=== PATIENT | female | born 1955 | race Caucasian/White ===

== ENCOUNTER → 2022-10-11 | Outpatient (CLI) | payer MEDICARE ==
[~2022-10-11] VITALS: Ht 172.7 cm; Wt 102.0 kg
[~2022-10-11] MED LIST: TRAM50TA3 PO
== END | disposition home or self-care (01) ==
LOC: PREOP 05:36
PROVIDERS: ATTEND Surgery
DX: Z01.818 Encounter for other preprocedural examination (principal)

== ENCOUNTER 2022-10-18 10:47 | Day surgery (SDC) | payer MEDICARE, OTHER ==
[~2022-10-18] VITALS: Ht 172.7 cm; Wt 102.0 kg
[2022-10-18] VITALS (11 sets, daily range): BP systolic 137–163; BP diastolic 61–71
--- NOTE | 2022-10-18 11:14 | Progress Note-Pre Operative ---
Pre-Operative Progress Note Date of Available H&P: Sep 26, 2022 Date H&P Reviewed: Oct 18, 2022 Time H&P Reviewed: 11:10 History & Physical: H&P Reviewed, Patient Examed, No changes noted Pre-Operative Diagnosis: Incarcerated umbilical hernia ELISSA WEBB DO Oct 18, 2022 11:14
[2022-10-18] MEDS ORDERED: LACTATED RINGERS 1,000 ML IV PRN (11:15)
[2022-10-18] MEDS ORDERED: ceFAZolin INJECTION 2,000 MG in NS (IVPB) 50 ML IV ONE (11:15)
[2022-10-18] MEDS ORDERED: LIDOCAINE/EPI 1%-1:100,000 (XYLOCAINE) 30ML ONE (12:04)
[2022-10-18] MEDS ORDERED: ONDANSETRON 4 MG/2 ML (SDV) Z0FRAN ONE (12:47)
[2022-10-18] MEDS ORDERED: LIDOCAINE PF 2% 5 ML (XYLOCAINE) VIAL ONE (12:47)
[2022-10-18] MEDS ORDERED: MIDAZOLAM 2 MG/2 ML (VERSED) VIAL ONE (12:47)
[2022-10-18] MEDS ORDERED: proPOfol 200 MG/20 ML (DIPRIVAN) VIAL IV ONE (12:47)
[2022-10-18] MEDS ORDERED: ROCURONIUM 10 MG/ML 5 ML SYRINGE IV ONE (12:47)
[2022-10-18] MEDS ORDERED: fentaNYL INJ 100 MCG/2 ML AMP ONE (12:47)
[2022-10-18] MEDS ORDERED: SEVOFLURANE (ULTANE) 15 ML INHAL SOLN ONE ×2 (12:47→14:09)
[2022-10-18] MEDS ORDERED: HYDROmorphone 2 MG/ML VIAL (DILAUDID) ONE (13:37)
[2022-10-18] MEDS ORDERED: LIDOCAINE/EPI 1%-1:100,000 (XYLOCAINE) 30ML INJ ONE (13:38)
[2022-10-18] MEDS ORDERED: SUGAMMADEX 500 MG/5 ML VIAL (BRIDION) IV ONE (13:43)
[2022-10-18] MEDS ORDERED: KETOROLAC 30 MG/ML VIAL ONE (13:44)
--- NOTE | 2022-10-18 14:09 | Progress Note-Post Operative ---
Post-Operative Progess Note Surgeon (s)/Chip Applying Machine Tender (s) Surgeon ELISSA WEBB DO Chip Applying Machine Tender: Alberto Pre-Operative Diagnosis Incarcerated umbilical hernia Post-Operative Diagnosis same Procedure & Operative Findings Date of Procedure 10/18/22 Procedure Performed/Findings PROCEDURE: Laparoscopic Umbilical hernia repair with mesh. COMPLICATIONS: None. INDICATIONS: The patient is a 67, female with an incarcerated umbilical hernia, which has continued to increase in size and cause discomfort. The patient was explained the risk and benefits of the procedure and wished to proceed with the procedure. Consent was signed on the chart. DESCRIPTION OF PROCEDURE: The patient was taken into the operating suite, prepped and draped in sterile fashion. Surgical pause was performed. Local anesthetic was infiltrated in left upper quadrant. A 15 blade scalpel was used to make a small skin incision. Cautery was used to dissect down to the fascia, which was then scored and divided the muscle, went through the posterior sheath and a balloon trocar was inserted into the abdomen. The abdomen was then insufflated. Omental fat was seen in the umbilical hernia defect; which measured approximately 4cm long by 3 cm wide. Two more trocars were placed along the left side appx 10cm between each port. These were 8mm robotic ports and then the robot was docked. Fenestrated bipolar in the left port and scissors in the right port. Hernia contents were easily removed and then used the scissors and cautery to take down some fat so the mesh would lay nicely on the peritoneum. The defect was then closed using 0 Stratafix, run from inferior to superior and then back down; closed the defect very nicely. Next, Echo Ventralight mesh 6cm x 4cm was then inserted into the abdomen and grabbed through a stab incision at the umbilicus with the [place]. The balloon was inflated on the mesh. A small 5 mm trocar was placed on the right about even with umbilicus; using the versa- step in the normal fashion. Circumferential tacks were placed with a SecureStrap Tacker. The balloon was then removed and inner crown was created as well. The mesh was tacked with pressure being decreased. The 12 mm fascial defect was then closed using 0 Vicryl in a figure of eight fashion. The abdomen was then desufflated, the trocars were removed. The skin was then closed using 4-0 Monocryl in a simple interrupted subcuticular fashion. The abdomen was washed and dried and Skin Affix was placed over the incisions and a tonsil ball was placed into the umbilicus. The patient tolerated procedure well without any complications. She was taken to recovery room in stable condition. Dr. Dominguez assisted on this case helping to make incisions, close incisions, identify anatomy, position the mesh and tack the mesh in place. Anesthesia Type GET Estimated Blood Loss Estimated blood loss (mL): scant Specimens/Packing Specimens Removed none ELISSA WEBB DO Oct 18, 2022 14:09
[2022-10-18] MEDS ORDERED: TRAM50TA3 PO (14:11)
--- NOTE | 2022-10-18 14:12 | Discharge Inst-Surgical ---
Discharge Inst-Surgical Depart Medication/Instructions New, Converted or Re-Newed RX: Transmitted to Pharmacy Patient Instructions Follow up Appt: Make appointment for 1 week. [phone] Instructions: No lifting greater than 20 pounds. No strenuous activity. May shower in 24 hours, no tub bath or soaking. Use incentive spirometer at home as directed. No Smoking Skin/Wound Care: May remove bandages in am. You need to leave the Dermabond on incision it will fall off on it's own. Symptoms to Report: Appetite Changes, Extremity Discoloration, Numbness/Tingling, Swelling Increased, Bleeding Excessive, Eyesight Changes, Pain Increased, Urine Color Change, Constipation(Persistent), Fever over 101 degree F, Pain/Pressure in chest, Urinating Difficulty, Cough Up/Vomit Blood, Heart Beat Irreg/Pounding, Pain/Pressure in jaw, Cramps in feet or legs, Lightheadedness, Pain/Pressure in shoulder, Diarrhea(Persistent), Memory Changes Suddenly, Questions/Concerns, Weight gain consecutive days, Dizziness/Fainting, Nausea/Vomiting, Shortness of Breath, Weight gain over 2 pounds If questions or concerns contact your physician Or seek help at emergency department. Activity Activity as Tolerated: Yes Activity Instructions: Avoid Stress to Incision Driving Instructions: No Driving/Refer to Dr. Rincon Discharge Diet: No Restrictions Diet After 24 Hours: Clear Liquid if Nauseous If Any Problems/Questions/Issu: Contact Your Physician, Go to Emergency Room Skin/Wound Care Infection Signs and Symptoms: Increased Redness, Foul Odor of Wound, Increased Drainage, Skin Itchy or Has a Rash, Increased Swelling, Temperature Above 101 F Wound Care Comment: Heating pad to shoulder or neck tonight for pain. Remove bandage over belly button on Sunday Bathing Instructions: Shower Stitches/[place]/Dermabond Dis: Dermabond Ice Pack: Ice On and Off Site ELISSA WEBB DO Oct 18, 2022 14:12
[2022-10-18] MEDS ORDERED: ONDANSETRON 4 MG/2 ML (SDV) Z0FRAN IVP PRN (14:30)
[2022-10-18] MEDS ORDERED: HYDROmorphone 2 MG/ML VIAL (DILAUDID) IV ONE (14:30)
--- NOTE | 2022-10-19 09:01 | Anesthesia-General Post-Op ---
General Patient Condition Mental Status/LOC: Same as Preop Cardiovascular: Satisfactory Nausea/Vomiting: Absent Respiratory: Satisfactory Pain: Controlled Complications: Absent Post Op Complications Complications None Follow Up Care/Instructions Patient Instructions None needed. Anesthesia/Patient Condition Patient Condition Patient is doing well, no complaints, stable vital signs, no apparent adverse anesthesia problems. No complications reported per nursing. D/C home per [facility] Criteria: Yes VLADIMIR STOVALL CRNA Oct 19, 2022 09:01
== END 2022-10-18 16:25 | disposition home or self-care (01) ==
LOC: SDC 10:47
PROVIDERS: ATTEND Surgery
DX: K42.0 Umbilical hernia with obstruction, without gangrene (principal); E66.9 Obesity, unspecified; Z68.34 Body mass index [BMI] 34.0-34.9, adult; Z28.310 Unvaccinated for COVID-19
CPT/HCPCS: 49653; 87081; C1781

== ENCOUNTER → 2023-02-02 | Outpatient (CLI) | payer MEDICARE, OTHER ==
--- NOTE | 2023-02-02 12:57 | Diagnostic Imaging Report ---
EXAMINATION: Left knee radiographs, 3 views. COMPARISON: None. HISTORY: 67-year-old female, left knee pain. FINDINGS: There is degenerative type enthesopathy at the distal quadriceps tendon insertion. There are small tricompartmental osteophytes. There is mild medial and patellofemoral compartment joint space loss. There is no knee joint effusion. There is no identified acute fracture. IMPRESSION: 1. Mild tricompartmental osteoarthritis of the left knee without left knee joint effusion. Dictated by: Dictated on workstation # [id number]
== END ==
LOC: LAB FS 12:07
PROVIDERS: ATTEND Registered Nurse Emergency
DX: M17.12 Unilateral primary osteoarthritis, left knee (principal)
CPT/HCPCS: 36415; 73562; 84484

== ENCOUNTER → 2023-02-16 | Outpatient (CLI) | payer MEDICARE, OTHER | LOC: CARD 15:00 | PROVIDERS: ATTEND Registered Nurse Emergency | DX: S00.412A Abrasion of left ear, initial encounter (principal); R00.2 Palpitations; M25.562 Pain in left knee | CPT/HCPCS: 93306 ==

== ENCOUNTER → 2023-02-19 | Outpatient (CLI) | payer MEDICARE, OTHER | LOC: CARD 14:00 | PROVIDERS: ATTEND Registered Nurse Emergency | DX: R00.2 Palpitations (principal); M25.562 Pain in left knee; S00.412A Abrasion of left ear, initial encounter; X58.XXXA Exposure to other specified factors, initial encounter | CPT/HCPCS: 93225; 93226 ==